=== PATIENT | male | born 1960 | race Caucasian/White ===

== ENCOUNTER 2018-04-23 08:16 | Inpatient (IN) | payer BC, MEDICAID ==
[2018-04-17 15:28] LABS: BASOPHILS # (AUTO) 0.1 X10'3 (0-0.2); BASOPHILS % (AUTO) 0.8 % (0-1); EOSINOPHILS # (AUTO) 0.2 X10'3 (0-0.9); LYMPHOCYTES # (AUTO) 2.5 X10'3 (1.1-4.8); LYMPHOCYTES % (AUTO) 26.6 % (21-51); MEAN CORPUSCULAR HEMOGLOBIN 28.9 PG (27.0-31.0); MEAN CORPUSCULAR HGB CONC 32.8 % (33.0-36.5); MEAN CORPUSCULAR VOLUME 87.9 FL (78-98); MEAN PLATELET VOLUME 7.8 FL (7.4-10.4); MONOCYTES # (AUTO) 0.6 X10'3 (0-0.9); MONOCYTES % (AUTO) 6.7 % (2-12); NEUTROPHILS % (AUTO) 63.9 % (42-75); PRE OP HEMATOCRIT 44.2 % (42.0-52.0); PRE OP HEMOGLOBIN 14.5 g/dL (14.0-17.9); PRE OP PLATELET COUNT 260 X10'3 (140-440); RED BLOOD COUNT 5.03 X10'6 (4.70-6.10); RED CELL DISTRIBUTION WIDTH 14.6 % (11.5-14.5)
[2018-04-17 15:39] LABS: ALBUMIN 3.7 G/DL (3.4-5.0); ALBUMIN/GLOBULIN RATIO 0.9 (1.1-1.5); ALKALINE PHOSPHATASE 70 IU/L (46-116); BLOOD UREA NITROGEN 16 MG/DL (7-18); BUN/CREATININE RATIO 17.2 (5.4-32.0); CALCIUM 8.7 MG/DL (8.5-10.1); CHLORIDE 104 MMOL/L (99-107); CREATININE 0.93 MG/DL (0.60-1.10); PRE OP ALT 28 U/L (30-65); PRE OP ANION GAP 6 (8-16); PRE OP AST 17 U/L (10-37); PRE OP BILIRUB, TOTAL 0.3 MG/DL (0.0-1.0); PRE OP GLUCOSE 94 MG/DL (70-104); PRE OP SODIUM 142 MMOL/L (135-145); TOTAL CARBON DIOXIDE 31.7 MMOL/L (24-32); eGFR 84 ML/MIN
[2018-04-17 15:42] LABS: PRE OP POTASSIUM 3.3 MMOL/L (3.4-5.1)
[~2018-04-23] VITALS: Ht 182.9 cm; Wt 94.5 kg
[2018-04-23] VITALS (29 sets, daily range): BP systolic 80–119; BP diastolic 49–78
[~2018-04-23 08:16] MED LIST: NO HOME MEDS; acetaminophen 325mg tablet PO ONE; cefazolin/dext.iso 2gm/100 ML IV ONE; famotidine 20mg tablet PO ONE; gabapentin 300mg capsule PO ONE; metoclopramide 5 mg/ml inj IV ONE; oxyCODONE SR 10mg (sust. release) tab -2 tabs (20mg) PO ONE; ringers solution, lacted 1,000 ML IV SCH; tranexamic acid inj. 1,000 MG in normal saline 100ml IV soln 90 ML IV ONE; vancomycin inj 1,500 MG in normal saline 300ml IV soln IV ONE
[2018-04-23] MEDS ORDERED: ceFAZolin 1000mg inj ONE (10:00)
[2018-04-23] MEDS ORDERED: vancomycin 1,000mg inj ONE (10:00)
[2018-04-23] MEDS ORDERED: ROPIVAcaine inj 200 MG, ketorolac trometh inj. 30 MG, epiNEPHrine inj 0.6 MG, morphine ... IU ONE ×5 (10:50)
[2018-04-23] MEDS ORDERED: cloNIDine hcl/PF 100mcg/ml inj ONE (11:01)
[2018-04-23] MEDS ORDERED: tetracaine 1% (10mg/ml) pres. free inj. ONE (11:01)
[2018-04-23] MEDS ORDERED: fentaNYL/PF 50MCG/1 ML 2ML syringe ONE (11:02)
[2018-04-23] MEDS ORDERED: morphine /PF 1mg/ml 10ml inj. ONE (11:02)
[2018-04-23] MEDS ORDERED: MIDAZolam 5mg/5ml vial ONE (11:03)
[2018-04-23 11:06] LABS: ISTAT ANION GAP 12 (8-12); ISTAT BUN 14 mg/dL (6-19); ISTAT CL 104 mmol/L (99-107); ISTAT CREATININE 0.8 mg/dL (0.8-1.3); ISTAT GLUCOSE 89 mg/dL (70-104); ISTAT HGB 13.9 g/dl (14.0-18.0); ISTAT Hct 41 %PCV (42-52); ISTAT IONIZED CALCIUM 1.11 mmol/L (1.03-1.32); ISTAT K 3.8 mmol/L (3.5-5.1); ISTAT NA 141 mmol/L (135-145); ISTAT TOTAL CO2 25 mmol/L (24-32); ISTAT eGFR > 90 ML/MIN; POC BUN/CREATININE RATIO 17.5 (5.4-32.0)
[2018-04-23] MEDS ORDERED: propofol inj 20 ML IV ONE (11:28)
[2018-04-23] MEDS ORDERED: LIDOcaine 1%/PF 5ML 10 MG/ML VIAL ONE (11:28)
[2018-04-23] MEDS ORDERED: diphenhydrAMINE 50 mg/ml inj ONE (11:41)
[2018-04-23] MEDS ORDERED: ROPIVAcaine 0.5% (5mg/ml) 30ml vial ONE (12:06)
[2018-04-23] MEDS ORDERED: NALOXONE IV PRN (12:23)
[2018-04-23] MEDS ORDERED: NORMAL SALINE IV PRN (12:23)
[2018-04-23] MEDS ORDERED: ringers solution, lacted 1,000 ML IV SCH (12:23)
[2018-04-23] MEDS ORDERED: morphine 4 MG/ML inj SYRINge IV PRN ×2 (12:25)
[2018-04-23] MEDS ORDERED: ondansetron/PF 4mg/2ml inj IV PRN ×3 (12:25→13:00)
[2018-04-23] MEDS ORDERED: proCHLORperazine 10 MG/2 ml inj IV PRN (12:25)
[2018-04-23] MEDS ORDERED: meperidine/PF 25mg/ml syringe IV PRN ×3 (12:25)
[2018-04-23] MEDS ORDERED: diphenhydrAMINE 50 mg/ml inj IV PRN (12:25)
[2018-04-23] MEDS ORDERED: furosemide 40mg/4ml inj ONE (12:43)
[2018-04-23] MEDS ORDERED: dexamethasone sod phosphate 4mg/ml inj. ONE (12:45)
[2018-04-23] MEDS ORDERED: HYDROmorphone 1 mg/ml syringe IV PRN ×2 (13:00)
[2018-04-23] MEDS ORDERED: bisacodyl 10mg suppository rectal RC PRN (13:00)
[2018-04-23] MEDS ORDERED: diphenhydrAMINE 25mg capsule PO PRN ×2 (13:00)
[2018-04-23] MEDS ORDERED: acetaminophen 325mg tablet PO PRN (13:00)
[2018-04-23] MEDS ORDERED: magnesium hydroxide 30ml (MOM) UD suspension PO PRN (13:00)
[2018-04-23] MEDS: gabapentin 300mg capsule PO SCH ×2 (13:00→20:58)
[2018-04-23] MEDS ORDERED: oxyCODONE IR 5mg (immed. release) tablet PO PRN (13:00)
[2018-04-23] MEDS ORDERED: meperidine/PF 50mg/ml syringe ONE (13:26)
[2018-04-23] MEDS: acetaminophen 325mg tablet PO SCH ×2 (14:00→20:11)
[2018-04-23] MEDS ORDERED: albumin (Human) 5% 250ml 250 ML IV ONE ×2 (15:35)
[2018-04-23] MEDS ORDERED: NORMAL SALINE IV ONE (16:00)
[2018-04-23] MEDS ORDERED: TRANEXAMIC ACID IV ONE (16:00)
[2018-04-23] MEDS: ceFAZolin 1GM/D5W- ADD-VANTAGE 50 ML IV SCH (17:55)
[2018-04-23] MEDS ORDERED: vancomycin/NS 1 GM ADD-VANTAGE 250 ML IV SCH (20:00)
[2018-04-23] MEDS: potassium cl 20mEq in 1/2 NS 1,000 ML IV SCH ×2 (20:05→20:11)
[2018-04-23] MEDS: sennosides 8.6mg tablet PO SCH (20:58)
[2018-04-24] MEDS: ceFAZolin 1GM/D5W- ADD-VANTAGE 50 ML IV SCH (00:07)
[2018-04-24] MEDS: acetaminophen 325mg tablet PO SCH ×4 (02:10→19:43)
[2018-04-24 02:16] VITALS: BP 96/58
[2018-04-24] MEDS: potassium cl 20mEq in 1/2 NS 1,000 ML IV SCH ×3 (05:35→19:52)
[2018-04-24 06:00] VITALS: BP 90/54
[2018-04-24 06:38] LABS: BASOPHILS # (AUTO) 0.1 X10'3 (0-0.2); BASOPHILS % (AUTO) 0.6 % (0-1); EOSINOPHILS % (AUTO) 0 % (0-6); HEMATOCRIT 37.8 % (42.0-52.0); HEMOGLOBIN 12.4 g/dl (14.0-17.9); LYMPHOCYTES # (AUTO) 1.5 X10'3 (1.1-4.8); MEAN CORPUSCULAR HEMOGLOBIN 28.9 PG (27.0-31.0); MEAN CORPUSCULAR HGB CONC 32.9 % (33.0-36.5); MEAN CORPUSCULAR VOLUME 87.8 FL (78-98); MEAN PLATELET VOLUME 8.5 FL (7.4-10.4); MONOCYTES # (AUTO) 0.5 X10'3 (0-0.9); MONOCYTES % (AUTO) 3.9 % (2-12); NEUTROPHILS # (AUTO) 10.1 X10'3 (1.8-7.7); NEUTROPHILS % (AUTO) 83.5 % (42-75); PLATELET COUNT 210 X10'3 (140-440); RED CELL DISTRIBUTION WIDTH 14.4 % (11.5-14.5); WHITE BLOOD COUNT 12.1 X10'3 (4.5-11.0)
[2018-04-24] MEDS: gabapentin 300mg capsule PO SCH ×3 (08:15→21:27)
[2018-04-24] MEDS: enoxaparin 40mg/0.4ml syringe SQ SCH (08:17)
[2018-04-24] MEDS: oxyCODONE IR 5mg (immed. release) tablet PO PRN ×4 (09:33→21:29)
[2018-04-24 10:00] VITALS: BP 96/51
[2018-04-24 14:00] VITALS: BP 107/54
[2018-04-24 17:00] VITALS: BP 107/62
[2018-04-24] MEDS: celeCOXIB 100mg capsule PO SCH (19:42)
[2018-04-24] MEDS: sennosides 8.6mg tablet PO SCH (21:27)
[2018-04-24 22:00] VITALS: BP 104/62
[2018-04-25] MEDS: acetaminophen 325mg tablet PO SCH ×2 (01:33→07:24)
[2018-04-25] MEDS: oxyCODONE IR 5mg (immed. release) tablet PO PRN ×4 (01:33→15:44)
[2018-04-25 06:00] VITALS: BP 100/56
[2018-04-25] MEDS: celeCOXIB 100mg capsule PO SCH (07:24)
[2018-04-25] MEDS: gabapentin 300mg capsule PO SCH ×2 (07:24→15:43)
[2018-04-25] MEDS: enoxaparin 40mg/0.4ml syringe SQ SCH (07:25)
[2018-04-25 07:35] LABS: BASOPHILS # (AUTO) 0.1 X10'3 (0-0.2); EOSINOPHILS # (AUTO) 0.2 X10'3 (0-0.9); EOSINOPHILS % (AUTO) 2.2 % (0-6); HEMATOCRIT 35.8 % (42.0-52.0); HEMOGLOBIN 11.9 g/dl (14.0-17.9); LYMPHOCYTES # (AUTO) 2.1 X10'3 (1.1-4.8); LYMPHOCYTES % (AUTO) 19.9 % (21-51); MEAN CORPUSCULAR HEMOGLOBIN 29.6 PG (27.0-31.0); MEAN CORPUSCULAR HGB CONC 33.4 % (33.0-36.5); MEAN CORPUSCULAR VOLUME 88.7 FL (78-98); MONOCYTES % (AUTO) 9.1 % (2-12); NEUTROPHILS # (AUTO) 7.2 X10'3 (1.8-7.7); NEUTROPHILS % (AUTO) 67.8 % (42-75); PLATELET COUNT 200 X10'3 (140-440); RED BLOOD COUNT 4.04 X10'6 (4.70-6.10); RED CELL DISTRIBUTION WIDTH 14.7 % (11.5-14.5); WHITE BLOOD COUNT 10.6 X10'3 (4.5-11.0)
[2018-04-25] MEDS ORDERED: acetaminophen 325mg tablet PO PRN (13:00)
== END 2018-04-25 16:25 | disposition home or self-care (01) | DRG 470 ==
LOC: PAS IN 08:16 → EDSTATUS 10:30 → ORTHO 4S 16:30
PROVIDERS: ADMIT Orthopaedic Surgery; ATTEND Orthopaedic Surgery
PROC: 3E0T3BZ Introduction of Anesthetic Agent into Peripheral Nerves and Plexi, Percutaneous Approach (ICD-10-PCS; 2018-04-23)
PROC: 0SRD069 Replacement of Left Knee Joint with Oxidized Zirconium on Polyethylene Synthetic Substitute, Cemented, Open Approach (ICD-10-PCS; principal; 2018-04-23 11:01)
DX: M17.12 Unilateral primary osteoarthritis, left knee (principal); D62 Acute posthemorrhagic anemia; G89.29 Other chronic pain; M25.562 Pain in left knee
CPT/HCPCS: 36415; 80047; 80053; 85025; 87070; 93005; 97110; 97116; 97161; 97530; A7000; C1713; C1758; C1776; C9250; G0378; J0171; J0690; J0735; J1100; J1200; J1650; J1885; J1940; J2001; J2175; J2250; J2270; J2274; J2704; J2765; J2795; J3010; J3370; J7030; J7120; P9045; Q2037